=== PATIENT | female | born 1930 | race Caucasian/White ===

== ENCOUNTER → 2017-11-07 | Day surgery (SDC) | payer OTHER ==
[2017-10-31 13:44] VITALS: Ht 152.4 cm; Wt 54.1 kg
[~2017-11-07] VITALS: Ht 152.4 cm; Wt 54.1 kg
[~2017-11-07] MED LIST: ASPI81TA28 PO; AZAT50TA17 PO; CALC500C3 PO; EZET10TA63 PO; FURO-85 PO; LIDOCAINE HCL 2% 2 ML VIAL (20MG/ML) ONE; LISI5TAB PO; NATE120T PO; PROB500T8 PO; PROPOFOL IV EMULSION 10 MG/ML 20 ML VIAL ONE; RANITIDINE HCL 25 MG/ML INJ ONE; SODIUM CHLORIDE 0.9% 500ML 500 ML IV ONE
--- NOTE | 2017-11-07 08:44 | Endo History and Physical ---
History & Physical Date of Service: November 07, 2017. 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) Hx Thoracic Surgery: No Hx Orthopedic: No Hx Urinary Tract Surgery: No Family History None Social History Smoking Status: Never Smoker Hx Substance Use: No Hx Alcohol Use: No Allergies Coded Allergies: No Known Allergies (Verified , 10/31/17) Current Medications Reported Home Medications Medications Dose Route/Sig Max Daily Dose Days Date Category Lasix (Furosemide) 20 Mg Tab 1 Tab PO DAILY 90 10/31/17 Reported Prinivil (Lisinopril) 5 Mg Tab 1 Tab PO QAM 90 10/31/17 Reported Aspirin Ec (Aspirin) 81 Mg Tab 81 Mg PO DAILY 10/31/17 Reported Tums (Calcium Carbonate) 500 Mg Chew 2 Tab PO HS PRN 04/08/07 Reported Benemid (Probenecid) 500 Mg Tab 500 Mg PO HS 04/08/07 Reported Imuran (Azathioprine) 50 Mg Tab 50 Mg PO BID 04/08/07 Reported Zetia (Ezetimibe) 10 Mg Tab 10 Mg PO QAM 04/08/07 Reported Starlix (Nateglinide) 120 Mg Tab 60 Mg PO TIDM 04/08/07 Reported Vital Signs Weight (Kilograms): 54.09 Height (Feet): 5 Height (Inches): 0 Physical Exam General Appearance: no apparent distress Respiratory/Chest: Auscultation: breath sounds normal Cardiovascular: Heart Auscultation: RRR Abdomen: Inspection & Palpation: soft Assessment and Plan Stable for EGD
--- NOTE | 2017-11-07 09:54 | GI REPORT ---
Patient Name: Liza Brito Procedure Date: 11/07/2017 9:05 AM Date of : 1930 Admit Type: Outpatient Age: 86 Gender: Female Attending MD: Aurora Milton MD Procedure: Upper GI endoscopy Providers: Aurora Milton MD Referring MD: Ben Mahmood MD Indications: Dysphagia Medicines: Monitored Anesthesia Care Complications: No immediate complications. Estimated Blood Loss: Estimated blood loss: none. Procedure: Pre-Anesthesia Assessment: - Prior to the procedure, a History and Physical was performed, and patient medications and allergies were reviewed. The patient is competent. The risks and benefits of the procedure and the sedation options and risks were discussed with the patient. All questions were answered and informed consent was obtained. Patient identification and proposed procedure were verified by the physician and the nurse in the procedure room. Mental Status Examination: alert and oriented. Airway Examination: normal oropharyngeal airway and neck mobility. Respiratory Examination: clear to auscultation. CV Examination: normal. ASA Grade Assessment: III - A patient with severe systemic disease. After reviewing the risks and benefits, the patient was deemed in satisfactory condition to undergo the procedure. The anesthesia plan was to use monitored anesthesia care (MAC). Immediately prior to administration of medications, the patient was re-assessed for adequacy to receive sedatives. The heart rate, respiratory rate, oxygen saturations, blood pressure, adequacy of pulmonary ventilation, and response to care were monitored throughout the procedure. The physical status of the patient was re-assessed after the procedure. After obtaining informed consent, the endoscope was passed under direct vision. Throughout the procedure, the patient's blood pressure, pulse, and oxygen saturations were monitored continuously. The Scope was introduced through the mouth, and advanced to the second part of duodenum. The upper GI endoscopy was accomplished without difficulty. The patient tolerated the procedure well. Findings: The Z-line was found 35 cm from the incisors. A non-obstructing Schatzki ring (acquired) was found at the gastroesophageal junction. A TTS dilator was passed through the scope. Dilation with a 15-16.5-18 mm balloon dilator was performed to 18 mm. Mild inflammation characterized by erythema was found in the gastric body. The duodenal bulb and second portion of the duodenum were normal. A large non-bleeding diverticulum was found in the second portion of the duodenum. Impression: - Z-line, 35 cm from the incisors. - Non-obstructing Schatzki ring. Dilated. - Gastritis. - Normal duodenal bulb and second portion of the duodenum. - Non-bleeding duodenal diverticulum. - No specimens collected. Recommendation: - Discharge patient to home. - Follow an antireflux regimen. - Soft diet. - Return to referring physician. Aurora Milton MD 11/07/2017 9:54:16 AM This report has been signed electronically. Note Initiated On: 11/07/2017 9:05 AM Number of Addenda: 0 I attest to the content of the Intraoperative Record and orders documented therein, exceptions below {[id number]}
--- NOTE | 2017-11-07 09:55 | Discharge Instructions ---
Endoscopy Patient Instructions Date / Procedure(s) Performed November 07, 2017. EGD Allergy Information Coded Allergies: No Known Allergies (Verified , 10/31/17) Discharge Date / Findings November 07, 2017. Schatzki ring, dilated. Gastritis Provider Instructions Activity Restrictions - No exercising or heavy lifting for 24 hours. - Do not drink alcohol the day of the procedure. - Do not drive a car or operate machinery until the day after the procedure. - Do not make any important decisions or sign important papers in 24 hours after the procedure. Following Day: - Return to full activity which may include returning to work/school. Diet Start your diet with liquids and light foods (jello, soup, juice, toast). Then eat your usual diet if not nauseated. Treatment For Common After Affects For mild abdominal pain, bloating, or excessive gas: - Rest - Eat lightly - Lie on right side Follow-Up Information Follow-up with Dr. Trish eLger as scheduled Anesthesia Information What You Should Know You have had a procedure that required some medicine to reduce anxiety and discomfort. This treatment is called moderate sedation. After receiving the treatment, you may be sleepy, but you will be able to breathe on your own. The effects of the treatment may last for several hours. Follow these instructions along with Activity/Diet recommendations noted above: * Do NOT do anything where dizziness or clumsiness would be dangerous. * Rest quietly at home today, then you can be up and about tomorrow. * Have a responsible person stay with you the rest of today. * You may have had an I.V. today. If so, you may take the dressing off later today. Recommendations Call your doctor if: * Trouble breathing * Continuous vomiting for more than 24 hours * Temperature above 101 degrees * Severe abdominal pain or bloating * Pain not relieved by pain medicine ordered * There is increased drainage or redness from any incision * A large amount of rectal bleeding greater than 2-3 tablespoons. (If you had a polyp/s removed or have hemorrhoids, a small amount of blood - from the rectum is to be expected.) * You have any unanswered questions or concerns. IN THE EVENT OF A SERIOUS EMERGENCY, GO TO THE NEAREST EMERGENCY ROOM Your discharge instructions were prepared by provider Aurora Milton. Patient Instructions Signature Page Liza Brito Patient (or Guardian) Signature/Date: I have read and understand the instructions given to me by my caregivers. Caregiver/RN/Doctor Signature/Date: The above-named patient and/or guardian has received patient instructions on this date. + Original Patient Signature Page (only) stays with chart. Please make copy for patient.
--- NOTE | 2017-11-07 10:10 | Anesthesiology Progress Note ---
Anesthesia Post Op Note Date & Time November 07, 2017 at 10:10 Vital Signs Pain Intensity: 0 Vital Signs Past 12 Hours Date Time Temp Pulse Resp B/P (MAP) Pulse Ox O2 Delivery O2 Flow Rate FiO2 11/07/17 10:03 88 20 119/64 (82) 100 Room Air 11/07/17 08:54 36.6 87 16 167/80 (109) 100 Room Air Notes Mental Status: alert / awake / arousable, participated in evaluation Pt Amnestic to Procedure: Yes Nausea / Vomiting: adequately controlled Pain: adequately controlled Airway Patency, RR, SpO2: stable & adequate BP & HR: stable & adequate Hydration State: stable & adequate Anesthetic Complications: no major complications apparent
[2017-11-07 10:31] VITALS: BP 118/84; PULSE 88; O2SAT 100
== END | disposition home or self-care (01) ==
LOC: C.GI 08:23
PROVIDERS: ATTEND Student in an Organized Health Care Education/Training Program
DX: R13.10 Dysphagia, unspecified (principal); K22.2 Esophageal obstruction; K57.30 Diverticulosis of large intestine without perforation or abscess without bleeding; I10 Essential (primary) hypertension; E78.5 Hyperlipidemia, unspecified; E11.9 Type 2 diabetes mellitus without complications; Z90.49 Acquired absence of other specified parts of digestive tract; Z79.82 Long term (current) use of aspirin; Z90.5 Acquired absence of kidney; Z90.12 Acquired absence of left breast and nipple